=== PATIENT | female | born 1945 | race Caucasian/White ===

== ENCOUNTER 2022-02-21 14:42 | Inpatient (IN) | payer MEDICARE, OTHER ==
[2022-02-21 16:00] VITALS: BMI 21.1
[2022-02-21] MEDS ORDERED: Ondansetron PF 4 MG/2 ML Vial IVP PRN (16:07)
[2022-02-21] MEDS ORDERED: Ondansetron ODT 4 MG TAB PO PRN (16:07)
[2022-02-21] MEDS ORDERED: Senokot S 8.6-50 MG TAB PO PRN (16:07)
[2022-02-21] MEDS ORDERED: Acetaminophen 325 MG TAB PO PRN (16:07)
[2022-02-21 16:45] LABS: Hemoglobin A1c 5.2 % (4.0-6.0)
[2022-02-21 16:54] LABS: Troponin I 0.171 ng/mL (< 0.028)
[2022-02-21 18:23] LABS: SARS-CoV-2 NAA Rapid Test Not Detected (NotDetected)
[2022-02-21] MEDS ORDERED: Aspirin 325 MG TAB PO SCH (19:12)
[2022-02-21 19:45] LABS: Troponin I 0.124 ng/mL (< 0.028)
[2022-02-22 05:12] LABS: #Eosinphils 0.1 thou/uL (0.0-0.7); #Lymphocytes 1.4 thou/uL (1.20-3.40); #Monocytes 0.4 thou/uL (0.11-0.59); #Neutrophils 3.8 thou/uL (1.40-6.50); %Basophils 0.2 % (0.0-1.0); %Eosinophils 2.1 % (0.0-10.0); %Lymphocytes 24.5 % (21.0-51.0); %Monocytes 7.1 % (0.0-10.0); %Neutrophils 66.1 % (42.0-75.0); Hemoglobin 12.7 g/dL (12.0-16.0); Mean Corpuscular HGB CONC 35.2 g/dL (32.0-36.0); Mean Corpuscular Hemoglobin 33.4 pg (27.0-31.0); Platelet Count 207 thou/uL (130-400); RBC Distribution Width 11.6 % (11.5-14.5); Red Blood Cell (RBC) Count 3.81 mill/uL (4.20-5.40); White Blood Cell (WBC) Count 5.7 thou/uL (4.8-10.8)
[2022-02-22 05:46] LABS: Anion Gap 13 mmol/L (10-20); BUN (Urea Nitrogen) 15 mg/dL (9.8-20.1); Calc. Creatinine Clearance 65 mL/min (70-130); Calcium 8.7 mg/dL (7.8-10.44); Carbon Dioxide 25 mmol/L (23-31); Cardiac Risk 4.1 (Less than 4.5); Chloride 107 mmol/L (98-107); Cholesterol 118 mg/dl (< 200 Desired); Estimated GFR 83; Glucose 100 mg/dL (83-110); HDL Cholesterol 29 mg/dL (>60 Neg Risk); LDL Cholesterol, Calculated 67 mg/dL; Potassium 3.8 mmol/L (3.5-5.1); Sodium 141 mmol/L (136-145); Triglycerides 111 mg/dL (Less than 150)
[2022-02-22] MEDS ORDERED: Meclizine HCl 25 MG TAB PO SCH (06:30)
[2022-02-22] MEDS ORDERED: SERTRALINE HCL 150 MG PO SCH (09:00)
[2022-02-22] MEDS ORDERED: Non-Formulary Item 1 EACH (Lansoprazole [Lansoprazole] 30 MG Capsule.Dr) PO SCH (09:00)
[2022-02-22] MEDS: Amlodipine 5 MG TAB PO SCH ×2 (09:47→20:40)
[2022-02-22] MEDS ORDERED: Sodium Chloride 0.9% 1,000 ML IV SCH (15:30)
[2022-02-22] MEDS: Meclizine HCl 12.5 MG TAB PO PRN (18:38)
[2022-02-22] MEDS ORDERED: cloNIDine 0.3mg/24 Hour PATCH TD SCH (19:00)
[2022-02-22] MEDS ORDERED: Meclizine HCl 12.5 MG TAB PO PRN (21:00)
[2022-02-22] MEDS ORDERED: Atorvastatin Calcium 40 MG TAB PO SCH (21:00)
[2022-02-23] MEDS: Meclizine HCl 12.5 MG TAB PO PRN ×2 (03:26→14:16)
[2022-02-23 05:47] LABS: #Eosinphils 0.2 thou/uL (0.0-0.7); #Lymphocytes 1.5 thou/uL (1.20-3.40); #Monocytes 0.3 thou/uL (0.11-0.59); #Neutrophils 2.7 thou/uL (1.40-6.50); %Basophils 0.3 % (0.0-1.0); %Eosinophils 3.9 % (0.0-10.0); %Lymphocytes 31.1 % (21.0-51.0); %Monocytes 6.9 % (0.0-10.0); %Neutrophils 57.7 % (42.0-75.0); Hemoglobin 12.7 g/dL (12.0-16.0); Mean Corpuscular HGB CONC 33.5 g/dL (32.0-36.0); Mean Corpuscular Hemoglobin 32.5 pg (27.0-31.0); Mean Corpuscular Volume 97.2 fL (78.0-98.0); Mean Platelet Volume 8.2 fL (7.4-10.4); Platelet Count 193 thou/uL (130-400); RBC Distribution Width 11.5 % (11.5-14.5); White Blood Cell (WBC) Count 4.7 thou/uL (4.8-10.8)
[2022-02-23 06:26] LABS: Anion Gap 10 mmol/L (10-20); BUN (Urea Nitrogen) 11 mg/dL (9.8-20.1); Calc. Creatinine Clearance 68 mL/min (70-130); Calcium 8.8 mg/dL (7.8-10.44); Carbon Dioxide 27 mmol/L (23-31); Chloride 109 mmol/L (98-107); Estimated GFR 88; Glucose 101 mg/dL (83-110); Potassium 3.7 mmol/L (3.5-5.1); Sodium 142 mmol/L (136-145)
[2022-02-23] MEDS: Amlodipine 5 MG TAB PO SCH (08:44)
[2022-02-23] MEDS ORDERED: Aspirin Chewable 81 MG TAB PO SCH (09:00)
[2022-02-23 13:43] VITALS: BP 135/73; TEMP 98.1
== END 2022-02-23 16:27 | disposition home or self-care (01) | DRG 69 ==
LOC: SDC 14:42 → NEURO 14:43 → OBSVTOIN 02-22 14:20
PROVIDERS: ADMIT Internal Medicine; ATTEND Internal Medicine
DX: G45.9 Transient cerebral ischemic attack, unspecified (principal); I10 Essential (primary) hypertension; E78.5 Hyperlipidemia, unspecified; K21.9 Gastro-esophageal reflux disease without esophagitis; R73.9 Hyperglycemia, unspecified; Z20.822 Contact with and (suspected) exposure to COVID-19; Z86.73 Personal history of transient ischemic attack (TIA), and cerebral infarction without residual deficits; Z88.0 Allergy status to penicillin; Z88.8 Allergy status to other drugs, medicaments and biological substances; Z88.2 Allergy status to sulfonamides; Z79.899 Other long term (current) drug therapy; Z79.82 Long term (current) use of aspirin; Z98.51 Tubal ligation status; Z98.890 Other specified postprocedural states
CPT/HCPCS: 36415; 70551; 80048; 80061; 83036; 85025; 93306; 93880; J7050